=== PATIENT | male | born 1980 | race Caucasian/White ===

== ENCOUNTER 2024-05-14 06:20 | Day surgery (SDC) | payer BC, SELFPAY | END 2024-05-14 12:49 | disposition home or self-care (01) | LOC: GI 06:20 | PROVIDERS: ATTENDING PHYSICIAN Surgery | DX: Z12.11 Encounter for screening for malignant neoplasm of colon (principal); K57.30 Diverticulosis of large intestine without perforation or abscess without bleeding; K64.8 Other hemorrhoids; D12.3 Benign neoplasm of transverse colon | CPT/HCPCS: 45385; 46221; 88305 ==

== ENCOUNTER 2025-02-26 06:23 | Day surgery (SDC) | payer BC, SELFPAY ==
[2025-02-26 10:25] VITALS: BMI 29.0
[2025-02-26 10:26] VITALS: BP 128/86; BMI 29.0
[2025-02-26] MEDS: TYLENOL 1000 MG PO (10:28)
[2025-02-26] MEDS: NORMOSOL-R/PLASMALYTE-A 1000 IV (10:34)
[2025-02-26 13:15] VITALS: BP 128/86; BP 155/95
[2025-02-26] MEDS: ZOFRAN 4 MG IV (13:21)
[2025-02-26 13:30] VITALS: BP 165/96
[2025-02-26 13:45] VITALS: BP 141/83
[2025-02-26] MEDS: DILAUDID 0.25 MG IV (13:49)
[2025-02-26 14:00] VITALS: BP 155/94
[2025-02-26 14:30] VITALS: BP 138/78
== END 2025-02-26 14:40 | disposition home or self-care (01) ==
LOC: SDS 06:23
PROVIDERS: ATTENDING PHYSICIAN Surgery
DX: K64.8 Other hemorrhoids (principal); D50.0 Iron deficiency anemia secondary to blood loss (chronic)
CPT/HCPCS: 46947